=== PATIENT | female | born 1965 | race Caucasian/White ===

== ENCOUNTER → 2016-12-04 | Outpatient (CLI) | payer BC ==
[~2016-12-04] MED LIST: HYDR-5688 PO; LEVO88TA PO
[2016-12-04 15:03] LABS: THYROID STIMULATING HORMONE 0.017 uIu/ml (0.300-4.500)
== END | disposition home or self-care (01) ==
LOC: C.LABMFLN 09:25
PROVIDERS: ATTEND Family Medicine
DX: E06.3 Autoimmune thyroiditis (principal)

== ENCOUNTER → 2017-02-06 | Outpatient (CLI) | payer BC ==
[2017-02-06 14:43] LABS: INFLUENZA A PCR Neg for Influ A (NEG)
[2017-02-06 14:45] LABS: INFLUENZA B PCR POS for Influ B (NEG)
== END | disposition home or self-care (01) ==
LOC: C.LABMFLN 10:20
PROVIDERS: ATTEND Family Medicine
DX: R69 Illness, unspecified (principal)

== ENCOUNTER 2017-03-10 10:07 | Emergency (ER) | payer BC ==
[~2017-03-10] VITALS: Ht 167.6 cm; Wt 70.0 kg
[2017-03-10 10:16] VITALS: TEMP 36.6; Ht 167.6 cm; Wt 70.0 kg
--- NOTE | 2017-03-10 10:33 | EMERGENCY ROOM VISIT NOTE ---
History First contact with patient: 10:19 Chief Complaint: FALL Stated Complaint: FELL OFF HORSE, HIT HEAD, TALLEY, BACK PAIN History of Present Illness The patient is a 51 year old female who presents to the Emergency Room via private vehicle with complaints of "fell off horse, hit head, headache, back pain". Patient states around 8:30 AM this morning she was on one of her horses when the horse threw her. She believes she may flown off the front of the horse and landed on her left hip and then struck the back of her head. At this time she notes that she is experiencing a severe headache on the right frontal portion of her head, slight nausea as well as left hip/ left gluteal pain. She states that she did not lose consciousness but also is experiencing slight tingling sensation down the left arm. She rates the headache as a 6/10. Review of Systems A complete 10-point Review of Systems was discussed with the patient, with pertinent positives and negatives listed in the History of Present Illness. All remaining Review of Systems questions can be considered negative unless otherwise specified. Past Medical/Surgical History Thyroid condition Family History No pertinent family history at this time. Social History Smoking Status: Never Smoker Social History: Patient lives at home with family. Current/Historical Medications Scheduled Levothyroxine Sodium (Synthroid), 88 MCG PO DAILY Scheduled PRN Hydrocodone/Acetaminophen 5MG/325MG (C[place]ley 5MG/325MG), 1-2 TABLET PO Q6 PRN for Pain Allergies Coded Allergies: Sulfa Antibiotics (Verified Allergy, Intermediate, RASH, 03/10/17) Sulfamethoxazole w/Trimethoprim (Verified Allergy, Intermediate, rash, 09/16) Physical Exam Vital Signs Date Time Temp Pulse Resp B/P Pulse Ox O2 Delivery O2 Flow Rate FiO2 03/10/17 13:34 71 20 129/85 97 03/10/17 12:10 79 18 119/84 99 Room Air 03/10/17 10:16 36.6 65 18 142/87 99 Room Air Physical Exam VITAL SIGNS - Vital signs and nursing notes were reviewed. Patient is afebrile , slightly hypertensive at 142/87, non-tachycardic and is saturating well on room air 99%. GENERAL -51-year-old female appearing her stated age. Communicates well with provider and answers questions appropriately. SKIN - Gross examination of the entire body surface demonstrates no lacerations to the body. No abrasions noted. HEAD - Normocephalic, Atraumatic. No Ennis's Sign or Raccoon's Eyes. No depressed skull fractures palpable. EYES - PERRL with EOMI bilaterally. Without subconjunctival hemorrhage. Palpebral conjunctiva pink and moist with no injection. EARS - No deformities of external structures noted on gross examination bilaterally. No hemotympanum present. No tympanic perforation noted. Handle of malleus, umbo, cone of light, pars tensa/flaccid all easily visualized. NOSE - Midline and without cyanosis. No epistaxis or clear watery discharge noted. Septum midline without deviation. No septal hematoma noted. No overlying ecchymosis noted. MOUTH/OROPHARYNX - Without perioral cyanosis. Tongue midline with equal elevation of palate bilaterally. No blood noted in the oropharynx. No tonsillar hypertrophy, erythema, or exudates noted. No dental fractures noted. NECK - Cervical collar in place. No tenderness to palpation over the cervical spinous processes. There is cervical paraspinal muscle tenderness noted. LUNGS - Chest wall symmetric without accessory muscle use, intercostals retractions, or central cyanosis. No flail chest or depressed fractures noted. No paradoxical chest wall movements noted. No tenderness to palpation across the anterior and posterior chest silverio. No tenderness with deep inspiration noted against the examiner's applied pressure to the lateral chest silverio. Normal vesicular breath sounds CTA B/L. No wheezes, rales, or rhonchi appreciated. CARDIAC - RRR with S1/S2. No murmur, rubs, or gallops appreciated. ABDOMEN - Abdominal contour and without pulsations or visible masses. BS normoactive all four quadrants. No rebound tenderness or guarding noted. Negative Jonh's or Grajeda Seay's Signs. No tenderness, palpable masses, hepatosplenomegaly, or ascites noted. EXTREMITIES -No gross deformities noted of the extremities. No tenderness to palpation of the upper or lower extremities. +3/5 radial and dorsalis pedis pulses palpated throughout. FROM with no tremors, fasciculations, or clonus noted on active throughout. +5/5 strength noted in UE/LE bilaterally. There is tenderness to palpation overlying the left gluteal region. No bony tenderness. There is no C-spine, thoracic or lumbar spinous processes tenderness. NEUROLOGIC - Cranial nerves II through XII grossly intact. Sensory intact to light touch throughout. Patellar reflexes +2/4. Patient able to perform rapid alternating movements appropriately. PSYCH - Pt is very pleasant and interacts well with examiner. Medical Decision & Procedures ER Provider Diagnostic Interpretation: L-SPINE MIN 4 VIEWS ROUTINE CLINICAL HISTORY: Left hip pain. Fall. COMPARISON: None FINDINGS: Alignment of the lumbar spine is anatomic. No acute fracture is identified. There is mild to moderate disc space narrowing at L5-S1. IMPRESSION: No acute lumbar spine fracture or subluxation. Electronically signed by: Daniel Osullivan M.D. 03/10/2017 12:17 PM Dictated Date/Time: 03/10/2017 12:[address] OF THE CERVICAL SPINE WITHOUT CONTRAST CLINICAL HISTORY: Fall. COMPARISON STUDY: No previous studies for comparison. TECHNIQUE: Helical axial images of the cervical spine were obtained without IV contrast. Sagittal and coronal reconstructions were viewed. FINDINGS: Slight leftward curvature of the cervical spine is likely positional. Alignment is otherwise anatomic. Vertebral body heights are maintained. There is no acute fracture. Mild multilevel degenerative disc disease and facet arthrosis is present. IMPRESSION: No acute cervical spine fracture or subluxation. Electronically signed by: Daniel Osullivan M.D. 03/10/2017 11:46 AM Dictated Date/Time: 03/10/2017 11:[address] OF THE HEAD WITHOUT CONTRAST CLINICAL HISTORY: Headache s/p fall COMPARISON STUDY: No previous studies for comparison. TECHNIQUE: Helical axial images of the head were obtained without IV contrast. Automated exposure control was utilized for the study. FINDINGS: No acute intracranial hemorrhage, midline shift or mass effect is present. Brain volume is normal. Ventricular system is normal. Basilar cisterns are patent. There are no extra-axial collections. Guzman-white differentiation is maintained. There is no calvarial fracture. IMPRESSION: 1. No acute intracranial findings. 2. No calvarial fracture. Electronically signed by: Daniel Osullivan M.D. 03/10/2017 12:03 PM Dictated Date/Time: 03/10/2017 12:01 PM LEFT PELVIS/UNILATERAL HIP 2-3VIEWS CLINICAL HISTORY: Left hip pain s/p fall COMPARISON: None FINDINGS: The sacroiliac joints and symphysis pubis are intact. No acute fracture within the pelvis or hips is identified. IMPRESSION: No acute fracture within the pelvis or hips. Electronically signed by: Daniel Osullivna M.D. 03/10/2017 12:16 PM Dictated Date/Time: 03/10/2017 12:15 PM Medications Administered Medications (Trade) Dose Ordered Sig/James Route Start Time Stop Time Status Last Admin Dose Admin Acetaminophen (Tylenol Tab) 500 mg NOW STAT PO 03/10/17 10:47 03/10/17 10:48 DC 03/10/17 10:59 500 MG Ondansetron HCl (Zofran Odt) 4 mg NOW STAT PO 03/10/17 10:53 03/10/17 10:54 DC 03/10/17 11:00 4 MG Oxycodone HCl (Roxicodone Immediate Rel Tab) 5 mg NOW STAT PO 03/10/17 13:20 03/10/17 13:23 DC 03/10/17 13:27 5 MG Medical Decision C-collar was applied. Patient was seen and evaluated as above. After obtaining a thorough history and physical examination radiographs were obtained of the affected regions, CT scan was obtained of the head and neck. There is concern for intracranial injury, and potential bony abnormality of the left hip region. Radiograph results as above. CT scan results as above. No acute findings. I suspect the patient is experiencing contusion pain. She is also likely experiencing a concussion. She requested something for pain that was not controlled, therefore was given 500 mg of Tylenol, 4 mg of Zofran. These were given orally. She was reevaluated and headache had diminished, but the left gluteal region pain persisted. She was given OxyIR for pain. She was offered CT scans however through joint decision making, she declined. I do believe this is an appropriate decision. I do not believe that the risk of radiation outweighs the benefit. She is to follow-up with family doctor regarding today's visit. She was educated upon worrisome symptoms which to return, had questions prior to discharge, and was discharged home in good condition. She'll be discharged home on [place]. It is recommended that she does not resume her normal activities until 1 week after the last symptoms of her concussion resolve. It is also recommended she follow up with her family doctor regarding today's visit for further evaluation and management. In the evaluation and treatment of this patient, the following differential diagnoses were considered: Concussion, Contrecoup Injury, Brain Tumor, Depression, Encephalitis, Hypothyroidism, Meningitis, CVA, TIA, Migraine, Ccervical spine fracture, contusion, tailbone injury, hip fracture, Headache, Intracranial Abnormality, Intracranial Hemorrhage, Subdural Hematoma, Subarachnoid Hemorrhage, Hydrocephalus, among others. [facility] Monitoring Program Search Results: patient reviewed within database, no issues identified Impression Primary Impression: Fall Additional Impressions: Contusion of multiple sites Tail bone pain Concussion Departure Information Dispostion Home / Self-Care Condition GOOD Prescriptions Hydrocodone/Acetaminophen 5MG/325MG (C[place] 5MG/325MG) Tab 1-2 TABLET PO Q6 Y for Pain, #15 TAB For Initial Treatment Prov: Keenan Donaldson PA-C 03/10/17 Referrals No Doctor, Assigned (PCP) Patient Instructions My [facility] Additional Instructions You have been treated in the Emergency Department for a concussion, low back pain, and head pain. CT Scan of your head/brain demonstrated no acute bleeding . This does not completely rule out the risk for future damage to the brain. You have been prescribed NORCO to be used for pain control. This is a narcotic medication. You cannot drive or consume alcohol while on this medicine. This medicine should only be used for pain that cannot be controlled with over-the- counter pain medicines. Please do not take with Tylenol. For pain control, you can use the following [id number] medicines (if >12 yo): - Regular strength (325mg/tab) Tylenol (acetaminophen) 2 tabs every 4-6 hours as needed. Do not exceed 12 tablets in a 24 hour period. Avoid taking more than 3 grams (3000 mg) of Tylenol per day. This includes any other sources of acetaminophen you may take on a regular basis. Please do not take with Crowley. - Regular strength (200 mg/tab) Advil (ibuprofen) 1-2 tabs every 4-6 hours as needed. Do not exceed a dose of 3200 mg per day. You should relax in a quiet, dark place for the rest of the day. Avoid any possible triggers including: cigarette smoke, caffeine, nicotine, chocolate, wine, beer, loud noises or music, or bright lights. You should schedule a follow-up appointment in 2-3 days with your Primary Care Provider or established Neurologist for further evaluation and treatment of your Headache. If you experience increased headache, vomiting, memory loss or increased difficulties please return immediately. Return to the Emergency Department if your current symptoms worsen despite treatment course outlined above, or if you develop any of the following symptoms : intractable pain despite aforementioned treatment course, visual disturbances , loss of vision, unilateral weakness or facial drooping, slurring of speech, loss of coordination, or loss of consciousness. It is recommended you do not resume your normal activities until 1 week after the last symptom of your concussion subsides. Please follow-up with your family doctor regarding today's visit for further evaluation and management. Please return to emergency department with any new/concerning symptoms. Problem Qualifiers
[2017-03-10] MEDS ORDERED: ONDANSETRON INJ 2 MG/ML 2 ML VIAL IV STA (10:47)
[2017-03-10] MEDS ORDERED: ACETAMINOPHEN 500 MG TAB PO STA (10:47)
[2017-03-10] MEDS ORDERED: ONDANSETRON 4MG OD TAB PO STA (10:53)
[2017-03-10] MEDS ORDERED: LEVO88TA PO (11:33)
--- NOTE | 2017-03-10 11:48 | DIAGNOSTIC IMAGING REPORT ---
CT OF THE CERVICAL SPINE WITHOUT CONTRAST CLINICAL HISTORY: Fall. COMPARISON STUDY: No previous studies for comparison. TECHNIQUE: Helical axial images of the cervical spine were obtained without IV contrast. Sagittal and coronal reconstructions were viewed. FINDINGS: Slight leftward curvature of the cervical spine is likely positional. Alignment is otherwise anatomic. Vertebral body heights are maintained. There is no acute fracture. Mild multilevel degenerative disc disease and facet arthrosis is present. IMPRESSION: No acute cervical spine fracture or subluxation. Electronically signed by: Daniel Osullivan M.D. 03/10/2017 11:46 AM Dictated Date/Time: 03/10/2017 11:44 AM
--- NOTE | 2017-03-10 12:05 | DIAGNOSTIC IMAGING REPORT ---
CT OF THE HEAD WITHOUT CONTRAST CLINICAL HISTORY: Headache s/p fall COMPARISON STUDY: No previous studies for comparison. TECHNIQUE: Helical axial images of the head were obtained without IV contrast. Automated exposure control was utilized for the study. FINDINGS: No acute intracranial hemorrhage, midline shift or mass effect is present. Brain volume is normal. Ventricular system is normal. Basilar cisterns are patent. There are no extra-axial collections. Guzman-white differentiation is maintained. There is no calvarial fracture. IMPRESSION: 1. No acute intracranial findings. 2. No calvarial fracture. Electronically signed by: Daniel Osullivan M.D. 03/10/2017 12:03 PM Dictated Date/Time: 03/10/2017 12:01 PM
--- NOTE | 2017-03-10 12:18 | DIAGNOSTIC IMAGING REPORT ---
LEFT PELVIS/UNILATERAL HIP 2-3VIEWS CLINICAL HISTORY: Left hip pain s/p fall COMPARISON: None FINDINGS: The sacroiliac joints and symphysis pubis are intact. No acute fracture within the pelvis or hips is identified. IMPRESSION: No acute fracture within the pelvis or hips. Electronically signed by: Daniel Osullivan M.D. 03/10/2017 12:16 PM Dictated Date/Time: 03/10/2017 12:15 PM
--- NOTE | 2017-03-10 12:19 | DIAGNOSTIC IMAGING REPORT ---
L-SPINE MIN 4 VIEWS ROUTINE CLINICAL HISTORY: Left hip pain. Fall. COMPARISON: None FINDINGS: Alignment of the lumbar spine is anatomic. No acute fracture is identified. There is mild to moderate disc space narrowing at L5-S1. IMPRESSION: No acute lumbar spine fracture or subluxation. Electronically signed by: Daniel Osullivan M.D. 03/10/2017 12:17 PM Dictated Date/Time: 03/10/2017 12:16 PM
[2017-03-10] MEDS ORDERED: HYDR-5688 PO (12:49)
[2017-03-10] MEDS ORDERED: OXYCODONE HCL IR 5 MG TAB (IMMEDIATE RELEASE) PO STA (13:20)
[2017-03-10 13:34] VITALS: BP 129/85; PULSE 71; O2SAT 97
== END 2017-03-10 13:37 | disposition home or self-care (01) ==
LOC: C.EDB 10:09 → C.EDC 13:37
DX: S06.0X0A Concussion without loss of consciousness, initial encounter (principal); T14.8 Other injury of unspecified body region; V80.010A Animal-rider injured by fall from or being thrown from horse in noncollision accident, initial encounter; E07.9 Disorder of thyroid, unspecified; Z79.899 Other long term (current) drug therapy; Z88.2 Allergy status to sulfonamides

== ENCOUNTER → 2017-05-23 | Outpatient (CLI) | payer BC ==
[2017-05-23 14:58] LABS: THYROID STIMULATING HORMONE 0.119 uIu/ml (0.300-4.500)
== END | disposition home or self-care (01) ==
LOC: C.LABMFLN 08:38
PROVIDERS: ATTEND Internal Medicine Endocrinology, Diabetes & Metabolism
DX: E03.8 Other specified hypothyroidism (principal)

== ENCOUNTER → 2018-07-14 | Outpatient (CLI) | payer BC ==
[~2018-07-14] MED LIST changes: -HYDR-5688 PO
== END | disposition home or self-care (01) ==
LOC: C.LABMFLN 07:40
PROVIDERS: ATTEND Internal Medicine Endocrinology, Diabetes & Metabolism
DX: Z13.1 Encounter for screening for diabetes mellitus (principal); Z13.220 Encounter for screening for lipoid disorders; E06.3 Autoimmune thyroiditis